=== PATIENT | female | born 2000 | race Caucasian/White ===

== ENCOUNTER 2018-06-15 09:49 | Emergency (ER) | payer OTHER ==
[2018-06-15] MEDS ORDERED: methylPREDNISolone SOD SUCC 125 MG/2 ML VIAL IVP ONE (10:03)
[2018-06-15] MEDS ORDERED: RANITIDINE 50 MG/2 ML VIAL IVP ONE (10:03)
[2018-06-15] MEDS ORDERED: NS 1,000 ML IV ONE (10:03)
--- NOTE | 2018-06-15 10:03 | EDPHY ---
H & P Source: Patient Exam Limitations: No limitations Time Seen by Provider: 06/15/18 10:00 HPI/ROS: HPI: This is a 17-year-old female who presents with Chief Complaint: Rash Location: Body Quality: Rash Duration: 24 hr Signs and Symptoms: no shortness of breath at rest, no shortness of breath on exertion, no cough, no chest pain, no palpitations, no lower extremity edema, no wheezing, no orthopnea, no paroxysmal nocturnal dyspnea, no fever, no injury/ trauma, no hemoptysis, no carpal pedal spasms Timing: Worsening Severity: Moderate Context: Patient is student at [employer], presents with complaints of generalized body rash that started 24 hr ago-"around yesterday afternoon." She reports that she 1st noticed it after taking her final yesterday afternoon on her chest and quickly spread to her abdomen and then to her back and to her upper thighs and when she woke up this morning it is now covering "her entire body but not her face." Patient reports that she was diagnosed with strep pharyngitis/tonsillitis 9 days ago and was started on amoxicillin. She is on day 9 of 10 of amoxicillin. She denies any fever, swollen glands, difficulty swallowing, neck stiffness. She has not ingested any new foods and has not been exposed to any new detergents/lotions/perfumes. Modifying Factors: Given IV Benadryl 50 mg en route by EMS Comment: ROS: A comprehensive 10 system review of systems is otherwise negative aside from elements mentioned in the history of present illness. MEDICAL/SURGICAL/SOCIAL HISTORY: Medical history: Generally healthy. Does not take any regular medications. LMP 4 weeks ago. Surgical history: Denies Social history: Student at [employer]. Admits to social alcohol use. Denies tobacco use and drug use. CONSTITUTIONAL: Well-developed, well-nourished, tearful teenage white female, awake and alert, no obvious distress HEENT: Atraumatic and normocephalic, PERRL, EOMI. Nares patent; no rhinorrhea; no nasal mucosal edema. Tympanic membranes clear. Oropharynx clear, no exudate and moist pink mucosa. Airway patent. No lymphadenopathy. No meningismus. Cardiovascular: Normal S1/S2, regular rate, regular rhythm, without murmur rub or gallop. PULMONARY/CHEST: Symmetrical and nontender. Clear to auscultation bilaterally. Good air movement. No accessory muscle usage. ABDOMEN: Soft, nondistended, nontender, no rebound, no guarding, no peritoneal signs, no masses or organomegaly. No CVAT. EXTREMITIES: 2/2 pulses, strength 5/5, no deformities, no clubbing, no cyanosis or edema. NEUROLOGICAL: no focal neuro deficits. GCS 15. SKIN: Warm and dry, scattered macular light pink pinpoint rash covering torso upper and lower extremities that blanches with palpation. No petechiae. No vesicles. Good capillary refill. (Adamaris Logan) Constitutional: Initial Vital Signs Temperature (C) 36.6 C 06/15/18 10:02 Heart Rate 110 H 06/15/18 10:02 Respiratory Rate 16 06/15/18 10:02 Blood Pressure 116/80 06/15/18 10:02 O2 Sat (%) 97 06/15/18 10:02 O2 Delivery Mode Room Air Allergies/Adverse Reactions: No Known Allergies Allergy (Unverified 06/15/18 10:02) Home Medications: Medication Instructions Recorded NK [No Known Home Meds] 06/15/18 Medical Decision Making ED Course/Re-evaluation: Vital signs reviewed and show mild tachycardia upon arrival. Placed on night monitor. Independence test and test ordered Given 1 L normal saline, IV Solu-Medrol 125 mg, IV Zantac and 1 L normal saline Patient has no signs of tonsillar abscess, meningitis, dehydration. 1034: Laboratory studies reviewed and mono and negative. Suspect this is scarlet fever from the strep. Advised supportive care. No signs of anaphylaxis, angioedema, respiratory distress, sepsis. This patient was seen under the supervision of my secondary supervising physician. I evaluated and cared for this patient independently. (Adamaris Logan) I did not see this patient while she was in the emergency department. However her care was discussed with the PA while the patient was in the department. I agree with treatment plan and management (Kurtis Bourne) Differential Diagnosis: Differential diagnosis includes but is not limited to dermatitis, measles, chickenpox, shingles, penicillin induced monitor rash, scarlet fever, allergic reaction. (Adamaris Logan) - Data Points Laboratory Results: 06/15/18 09:45 Beta HCG, Qual NEGATIVE Monoscreen NEGATIVE (NEGATIVE) Medications Given: Discontinued Medications Diphenhydramine HCl (Benadryl Injection) 50 mg IVP EDNOW ONE Stop: 06/15/18 10:04 Last Admin: 06/15/18 10:07 Dose: Not Given Sodium Chloride (Ns) 1,000 mls @ 0 mls/hr IV ONCE ONE; Wide Open PRN Reason: Protocol Stop: 06/15/18 10:04 Last Admin: 06/15/18 10:14 Dose: 1,000 mls Methylprednisolone Sodium Succinate (Solu-Medrol) 125 mg IVP EDNOW ONE Stop: 06/15/18 10:04 Last Admin: 06/15/18 10:14 Dose: 125 mg Ranitidine HCl (Zantac) 50 mg IVP EDNOW ONE Stop: 06/15/18 10:04 Last Admin: 06/15/18 10:14 Dose: 50 mg Departure - Departure Disposition: Home, Routine, Self-Care Clinical Impression: Strep pharyngitis with scarlet fever Condition: Good Instructions: Strep Throat (ED), Scarlet Fever (ED) Additional Instructions: Take Tylenol 650 mg every 4 hours and/or Ibuprofen 600 mg every 8 hours with food as needed for pain/headache/fever. Consume a minimum of 8-10 glasses of water or electrolyte fluid replacement drinks that include Gatorade, Powerade, Pedialyte. The rash will slowly resolve over the next 7-10 days. Referrals: Patient,NotPresent [Unknown] - As per Instructions [facility] [Clinic] - As per Instructions Stand Alone Forms: School Excuse
[2018-06-15 10:42] VITALS: BP 133/87
== END 2018-06-15 10:41 | disposition home or self-care (01) ==
DX: J02.0 Streptococcal pharyngitis (principal); A38.9 Scarlet fever, uncomplicated
CPT/HCPCS: 96374; J2780; J2930